=== PATIENT | male | born 1975 ===

== ENCOUNTER 2017-11-19 23:47 | Emergency (ER) | payer SELFPAY ==
[2017-11-19 23:59] VITALS: O2SAT 98
[2017-11-20] MEDS ORDERED: Alum-Mag Hydrox-Simethicone Susp (30 mL) PO STA (00:33)
--- NOTE | 2017-11-20 00:48 | ED PDOC ---
HPI: General Adult Time Seen by Provider: 11/20/17 00:28 Chief Complaint (Nursing): Medical Clearance Chief Complaint (Provider): Medical Clearance History Per: Patient History/Exam Limitations: no limitations Onset/Duration Of Symptoms: Days Current Symptoms Are (Timing): Still Present Additional Complaint(s): 42 year old male with a pmhx of gastritis, diabetes, and renal failure status post renal transplant brought in by Police for medical and psychiatric clearance. Police is requesting clearance for incarceration. Denies suicidal and homicidal ideation. PMD: Riana Young Past Medical History Reviewed: Historical Data, Nursing Documentation, Vital Signs Vital Signs: Last Vital Signs Temp 98.2 F 11/20/17 02:05 Pulse 96 H 11/20/17 02:05 Resp 16 11/20/17 02:05 BP 150/78 11/20/17 02:05 Pulse Ox 98 11/20/17 02:05 - Medical History PMH: Diabetes, Gastritis, HTN, Hyperlipidemia, Chronic Kidney Disease Other PMH: Renal failure status post renal transplant - Surgical History Other surgeries: renal transplant - Family History Family History: States: Unknown Family Hx - Social History Current smoker - smoking cessation education provided: No Alcohol: None Drugs: Denies - Allergies Allergies/Adverse Reactions: Allergies Allergy/AdvReac Type Severity Reaction Status Date / Time No Known Allergies Allergy Verified 11/19/17 23:51 Review of Systems ROS Statement: Except As Marked, All Systems Reviewed And Found Negative Constitutional: Positive for: Other (medical and psychiatric clearance.) Physical Exam - Reviewed Nursing Documentation Reviewed: Yes Vital Signs Reviewed: Yes - Physical Exam Appears: Positive for: Non-toxic, No Acute Distress Head Exam: Positive for: ATRAUMATIC, NORMOCEPHALIC Skin: Positive for: Normal Color, Warm, Dry Eye Exam: Positive for: EOMI, Normal appearance, PERRL ENT: Positive for: Normal ENT Inspection Neck: Positive for: Normal, Painless ROM, Supple Cardiovascular/Chest: Positive for: Regular Rate, Rhythm Respiratory: Positive for: Normal Breath Sounds. Negative for: Respiratory Distress Gastrointestinal/Abdominal: Positive for: Normal Exam, Soft. Negative for: Tenderness Back: Positive for: Normal Inspection. Negative for: L CVA Tenderness, R CVA Tenderness, Vertebral Tenderness Extremity: Positive for: Normal ROM. Negative for: Pedal Edema, Deformity Neurologic/Psych: Positive for: Alert, Oriented. Negative for: Motor/Sensory Deficits - ECG O2 Sat by Pulse Oximetry: 98 (RA) Pulse Ox Interpretation: Normal Medical Decision Making Medical Decision Making: Time: 32 Impression 42 y/o male brought to the ED for medical and psychiatric evaluation prior to incarceration. Plan: -- EKG -- Crisis Evaluation as ordered -- Maalox Plus 30 ml PO -- Pepcid 20 mg PO -- Accucheck -- Accucheck Time: 122 -- Patient evaluated by crisis and is stable for discharge. -- Dx: adjustment disorder Scribe Attestation: Documented by Yakelin Perez acting as a scribe for Dr. Gray James MD. Provider Scribe Attestation: All medical record entries made by the Scribe were at my direction and personally dictated by me. I have reviewed the chart and agree that the record accurately reflects my personal performance of the history, physical exam, medical decision making, and the department course for this patient. I have also personally directed, reviewed, and agree with the discharge instructions and disposition. Disposition - Clinical Impression Clinical Impression: Adjustment disorder, Medical clearance for incarceration - Disposition Disposition: Routine/Home Disposition Time: 02:00 Condition: STABLE Additional Instructions: Patient is medically and psychiatrically stable for incarceration Please administer all medications to patient as indicated by his prescribed medications Instructions: Adjustment Disorder Forms: Drive (Albanian) Print Language: MALTESE
[2017-11-20] MEDS ORDERED: Alum-Mag Hydrox-Simethicone Susp (30 mL) ONE (00:59)
[2017-11-20 04:16] VITALS: BP 150/78; PULSE 96; RESP 16; TEMP 98.2
--- NOTE | 2017-11-20 13:03 | CARD ---
APPROVED REPORT EKG Measurement Heart [id number] <Conclusion> Sinus tachycardia Minimal voltage criteria for LVH, may be normal variant Septal infarct, age undetermined T wave abnormality, consider inferior ischemia Abnormal ECG
== END 2017-11-20 02:05 ==
LOC: H.ER 23:47
DX: F43.20 Adjustment disorder, unspecified (principal); E11.22 Type 2 diabetes mellitus with diabetic chronic kidney disease; E78.5 Hyperlipidemia, unspecified; I12.9 Hypertensive chronic kidney disease with stage 1 through stage 4 chronic kidney disease, or unspecified chronic kidney disease; N18.9 Chronic kidney disease, unspecified; Z94.0 Kidney transplant status